=== PATIENT | male | born 1960 | race Caucasian/White ===

== ENCOUNTER 2019-07-31 09:00 | Outpatient (RCR) | payer OTHER | END 2019-07-31 09:30 | disposition still patient (30) | LOC: PT 09:00 | DX: Z47.89 Encounter for other orthopedic aftercare (principal); Z98.890 Other specified postprocedural states ==

== ENCOUNTER 2019-11-21 10:30 | Outpatient (RCR) | payer OTHER | END 2019-11-25 | disposition still patient (30) | LOC: PT | DX: Z98.890 Other specified postprocedural states (principal) ==

== ENCOUNTER 2019-11-28 09:00 | Outpatient (RCR) | payer OTHER | END 2019-11-28 09:30 | disposition still patient (30) | LOC: PT 09:00 | DX: Z98.890 Other specified postprocedural states (principal) ==